=== PATIENT | female | born 1975 | race Two or more races ===

== ENCOUNTER 2022-03-02 10:18 | Inpatient (IN) | payer MEDICAID ==
[~2022-03-02] VITALS: Ht 157.5 cm; Wt 79.1 kg
[2022-03-02 11:07] LABS: Basophils # (auto) 0.2 10 ^3/uL (0-0.2); Eosinophils # (auto) 0.6 10 ^3/uL (0-0.8); Monocytes # (auto) 0.4 10 ^3/uL (0-1.3)
[2022-03-02 11:11] LABS: Basophils % (auto) 1.3 % (0.0-2.0); Eosinophils % (auto) 4.3 % (0.0-7.0); Hematocrit 39.3 % (36.0-46.0); Hemoglobin 12.5 g/dL (12.2-16.2); Lymphocytes # (auto) 2.3 10 ^3/uL (0.4-5.4); Lymphocytes % (auto) 16.3 % (10.0-50.0); Mean Corpuscular Hemoglobin 26.5 pg (28.0-32.0); Mean Corpuscular Hgb Conc. 31.9 g/dL (32.0-36.0); Mean Corpuscular Volume 83.1 fL (80.0-100.0); Monocytes % (auto) 2.7 % (0.0-12.0); Neutrophils # (auto) 10.5 10 ^3/uL (1.6-8.6); Neutrophils % (auto) 75.4 % (37.0-80.0); Red Blood Cells 4.73 10^6/uL (4.0-5.20); Red Cell Distribution Width 14.3 % (11.8-14.3); White Blood Cell 13.9 10^3/uL (4.4-10.8)
[2022-03-02 11:55] LABS: Albumin 3.5 g/dL (3.4-5.0); Potassium 4.1 mmol/L (3.5-5.1)
[2022-03-02 11:59] LABS: BUN/Creatinine Ratio 16.2; Bilirubin, Total 0.4 mg/dL (0.2-1.0); Total Protein 8.2 g/dL (6.4-8.2)
[2022-03-02] MEDS ORDERED: CLINDAMYCIN 600MG IV 50 ML IV ONE (13:00)
[2022-03-02] MEDS ORDERED: PANTOPRAZOLE 40 MG/10 ML VIAL INJ IV ONE (16:45)
[2022-03-02] MEDS ORDERED: SODIUM CHLORIDE 0.9% 1,000 ML IV SCH (16:45)
[2022-03-02] MEDS ORDERED: ONDANSETRON HCL 4 MG/2 ML VIAL IV PRN (16:45)
[2022-03-02] MEDS ORDERED: HYDROcodone-ACET 5/325MG TAB PO PRN (16:45)
[2022-03-02] MEDS: SODIUM CHLORIDE 0.9% 1,000 ML IV SCH (17:00)
[2022-03-02] MEDS ORDERED: VANCOMYCIN 1GM/250ML 250 ML IV ONE (17:00)
[2022-03-02 17:30] LABS: Cholesterol 147 mg/dL (< 200); HDL Cholesterol 48 mg/dL (40-59); LDL Cholesterol 92 mg/dL (< 100); Triglycerides 99 mg/dL (< 150)
[2022-03-03] MEDS: SODIUM CHLORIDE 0.9% 1,000 ML IV SCH ×3 (03:04→23:09)
[2022-03-03] MEDS: hydrALAZINE HCL 20 MG/ML VL IV PRN (03:08)
[2022-03-03] MEDS: ACETAMINOPHEN 325 MG TAB PO PRN (03:22)
[2022-03-03 06:04] LABS: Basophils # (auto) 0 10 ^3/uL (0-0.2); Basophils % (auto) 0.3 % (0.0-2.0); Eosinophils # (auto) 0.3 10 ^3/uL (0-0.8); Lymphocytes # (auto) 1.7 10 ^3/uL (0.4-5.4); Mean Corpuscular Volume 82.6 fL (80.0-100.0); Monocytes # (auto) 0.3 10 ^3/uL (0-1.3)
[2022-03-03 06:07] LABS: Eosinophils % (auto) 2.4 % (0.0-7.0); Hematocrit 36.2 % (36.0-46.0); Hemoglobin 11.6 g/dL (12.2-16.2); Lymphocytes % (auto) 13.1 % (10.0-50.0); Mean Corpuscular Hemoglobin 26.5 pg (28.0-32.0); Mean Corpuscular Hgb Conc. 32.1 g/dL (32.0-36.0); Monocytes % (auto) 2.4 % (0.0-12.0); Neutrophils # (auto) 10.7 10 ^3/uL (1.6-8.6); Neutrophils % (auto) 81.8 % (37.0-80.0); Red Blood Cells 4.39 10^6/uL (4.0-5.20); Red Cell Distribution Width 14.6 % (11.8-14.3); White Blood Cell 13.1 10^3/uL (4.4-10.8)
[2022-03-03 06:15] LABS: Albumin 2.8 g/dL (3.4-5.0); Calcium 8.1 mg/dL (8.5-10.1); Potassium 3.6 mmol/L (3.5-5.1)
[2022-03-03 06:17] LABS: BUN/Creatinine Ratio 11.5
[2022-03-03 06:20] LABS: Bilirubin, Total 0.4 mg/dL (0.2-1.0)
[2022-03-03] MEDS ORDERED: amLODIPine BESYLATE 5 MG TAB PO ONE (09:15)
[2022-03-03] MEDS ORDERED: VANCOMYCIN PER PHARMACY 0 MG IV SCH (09:15)
[2022-03-03] MEDS ORDERED: VANCOMYCIN 1GM/250ML 250 ML IV ONE (09:45)
[2022-03-03] MEDS: PANTOPRAZOLE 40 MG/10 ML VIAL INJ IV SCH (10:12)
[2022-03-03] MEDS: ENOXAPARIN SOD 40 MG/0.4 ML SYRINGE SC SCH (10:17)
[2022-03-03] MEDS: CLINDAMYCIN 600MG IV 50 ML IV SCH ×2 (15:09→23:09)
[2022-03-03 16:00] VITALS: BP 146/75
[2022-03-03 22:00] VITALS: BP 155/66
[2022-03-03] MEDS: VANCOMYCIN 1GM/250ML 250 ML IV SCH (23:08)
[2022-03-04] MEDS: ACETAMINOPHEN 325 MG TAB PO PRN ×3 (00:52→22:02)
[2022-03-04 05:00] VITALS: BP 145/71
[2022-03-04 05:22] LABS: Basophils # (auto) 0 10 ^3/uL (0-0.2); Basophils % (auto) 0.4 % (0.0-2.0); Eosinophils # (auto) 0.3 10 ^3/uL (0-0.8); Eosinophils % (auto) 2.8 % (0.0-7.0); Hematocrit 34.6 % (36.0-46.0); Hemoglobin 11.2 g/dL (12.2-16.2); Lymphocytes # (auto) 1.8 10 ^3/uL (0.4-5.4); Lymphocytes % (auto) 16.2 % (10.0-50.0); Mean Corpuscular Hemoglobin 27.3 pg (28.0-32.0); Mean Corpuscular Hgb Conc. 32.5 g/dL (32.0-36.0); Monocytes # (auto) 0.4 10 ^3/uL (0-1.3); Monocytes % (auto) 3.7 % (0.0-12.0); Neutrophils # (auto) 8.6 10 ^3/uL (1.6-8.6); Neutrophils % (auto) 76.9 % (37.0-80.0); Red Blood Cells 4.12 10^6/uL (4.0-5.20); Red Cell Distribution Width 14.5 % (11.8-14.3); White Blood Cell 11.2 10^3/uL (4.4-10.8)
[2022-03-04 05:39] LABS: Albumin 2.8 g/dL (3.4-5.0)
[2022-03-04 05:41] LABS: BUN/Creatinine Ratio 11.9
[2022-03-04 05:44] LABS: Bilirubin, Total 0.3 mg/dL (0.2-1.0); Total Protein 6.9 g/dL (6.4-8.2)
[2022-03-04] MEDS: CLINDAMYCIN 600MG IV 50 ML IV SCH ×3 (06:21→22:02)
[2022-03-04] MEDS: SODIUM CHLORIDE 0.9% 1,000 ML IV SCH ×2 (09:10→18:27)
[2022-03-04] MEDS: VANCOMYCIN 1GM/250ML 250 ML IV SCH ×2 (09:27→22:01)
[2022-03-04] MEDS: PANTOPRAZOLE 40 MG/10 ML VIAL INJ IV SCH (09:27)
[2022-03-04] MEDS: ENOXAPARIN SOD 40 MG/0.4 ML SYRINGE SC SCH (09:28)
[2022-03-04] MEDS: amLODIPine BESYLATE 5 MG TAB PO SCH (09:28)
[2022-03-04] MEDS: hydrALAZINE HCL 20 MG/ML VL IV PRN (09:29)
[2022-03-04 13:00] VITALS: BP 137/68
[2022-03-04 17:00] VITALS: BP 122/61
[2022-03-04 21:52] VITALS: BP 148/78
[2022-03-05] MEDS: SODIUM CHLORIDE 0.9% 1,000 ML IV SCH ×3 (04:45→23:16)
[2022-03-05 04:59] VITALS: BP 120/80
[2022-03-05 05:41] LABS: Basophils # (auto) 0 10 ^3/uL (0-0.2); Basophils % (auto) 0.5 % (0.0-2.0); Eosinophils # (auto) 0.2 10 ^3/uL (0-0.8); Eosinophils % (auto) 2.6 % (0.0-7.0); Hematocrit 35.6 % (36.0-46.0); Hemoglobin 11.5 g/dL (12.2-16.2); Lymphocytes # (auto) 1.6 10 ^3/uL (0.4-5.4); Lymphocytes % (auto) 26.5 % (10.0-50.0); Mean Corpuscular Hemoglobin 26.4 pg (28.0-32.0); Mean Corpuscular Hgb Conc. 32.2 g/dL (32.0-36.0); Mean Corpuscular Volume 81.9 fL (80.0-100.0); Monocytes # (auto) 0.3 10 ^3/uL (0-1.3); Monocytes % (auto) 5.6 % (0.0-12.0); Neutrophils # (auto) 3.8 10 ^3/uL (1.6-8.6); Neutrophils % (auto) 64.8 % (37.0-80.0); Nucleated Red Blood Cells % 0.2 %; Red Blood Cells 4.35 10^6/uL (4.0-5.20); Red Cell Distribution Width 14.4 % (11.8-14.3); White Blood Cell 5.9 10^3/uL (4.4-10.8)
[2022-03-05 06:05] LABS: Albumin 2.7 g/dL (3.4-5.0); Calcium 8.1 mg/dL (8.5-10.1); Potassium 3.5 mmol/L (3.5-5.1)
[2022-03-05 06:07] LABS: BUN/Creatinine Ratio 11.1
[2022-03-05 06:10] LABS: Bilirubin, Total 0.2 mg/dL (0.2-1.0); Total Protein 7.6 g/dL (6.4-8.2)
[2022-03-05] MEDS: CLINDAMYCIN 600MG IV 50 ML IV SCH ×3 (07:01→23:16)
[2022-03-05 08:53] VITALS: BP 153/92
[2022-03-05] MEDS: PANTOPRAZOLE 40 MG/10 ML VIAL INJ IV SCH (10:29)
[2022-03-05] MEDS: VANCOMYCIN 1GM/250ML 250 ML IV SCH (10:29)
[2022-03-05] MEDS: amLODIPine BESYLATE 5 MG TAB PO SCH (10:31)
[2022-03-05] MEDS: ENOXAPARIN SOD 40 MG/0.4 ML SYRINGE SC SCH (10:31)
[2022-03-05 14:31] VITALS: BP 158/100
[2022-03-05 17:00] VITALS: BP 152/84
[2022-03-05] MEDS: hydrALAZINE HCL 20 MG/ML VL IV PRN (18:36)
[2022-03-05] MEDS: PENICILLIN G POTASSIUM 4,000,000 UNITS in D5W 5% 50 ML IV SCH ×2 (18:37→23:16)
[2022-03-05] MEDS: ACETAMINOPHEN 325 MG TAB PO PRN (20:25)
[2022-03-05 22:00] VITALS: BP 114/65
[2022-03-06] MEDS: PENICILLIN G POTASSIUM 4,000,000 UNITS in D5W 5% 50 ML IV SCH ×6 (03:54→21:57)
[2022-03-06 05:00] VITALS: BP 117/60
[2022-03-06] MEDS: CLINDAMYCIN 600MG IV 50 ML IV SCH ×3 (06:27→22:23)
[2022-03-06 06:32] LABS: Basophils # (auto) 0 10 ^3/uL (0-0.2); Basophils % (auto) 0.8 % (0.0-2.0); Eosinophils # (auto) 0.2 10 ^3/uL (0-0.8); Hematocrit 36.4 % (36.0-46.0); Hemoglobin 11.8 g/dL (12.2-16.2); Lymphocytes # (auto) 1.7 10 ^3/uL (0.4-5.4); Lymphocytes % (auto) 29.3 % (10.0-50.0); Mean Corpuscular Hemoglobin 26.5 pg (28.0-32.0); Mean Corpuscular Hgb Conc. 32.3 g/dL (32.0-36.0); Mean Corpuscular Volume 82.2 fL (80.0-100.0); Monocytes # (auto) 0.4 10 ^3/uL (0-1.3); Monocytes % (auto) 7.5 % (0.0-12.0); Neutrophils # (auto) 3.3 10 ^3/uL (1.6-8.6); Neutrophils % (auto) 58.4 % (37.0-80.0); Red Blood Cells 4.43 10^6/uL (4.0-5.20); Red Cell Distribution Width 14.4 % (11.8-14.3); White Blood Cell 5.7 10^3/uL (4.4-10.8)
[2022-03-06 06:47] LABS: Albumin 2.8 g/dL (3.4-5.0); BUN/Creatinine Ratio 18.8; Calcium 8.4 mg/dL (8.5-10.1); Potassium 4.4 mmol/L (3.5-5.1)
[2022-03-06 06:50] LABS: Bilirubin, Total 0.2 mg/dL (0.2-1.0); Total Protein 6.9 g/dL (6.4-8.2)
[2022-03-06] MEDS: ENOXAPARIN SOD 40 MG/0.4 ML SYRINGE SC SCH (08:52)
[2022-03-06] MEDS: PANTOPRAZOLE 40 MG/10 ML VIAL INJ IV SCH (08:52)
[2022-03-06] MEDS: amLODIPine BESYLATE 5 MG TAB PO SCH (08:53)
[2022-03-06 09:00] VITALS: BP 144/53
[2022-03-06] MEDS: SODIUM CHLORIDE 0.9% 1,000 ML IV SCH ×2 (10:14→20:45)
[2022-03-06 12:45] VITALS: BP 137/67
[2022-03-06 17:00] VITALS: BP 156/78
[2022-03-06] MEDS ORDERED: AMOX500T86 PO (19:56)
[2022-03-06] MEDS ORDERED: AMOX-277 PO (19:57)
[2022-03-06 21:40] VITALS: BP 140/62
[2022-03-07] MEDS: PENICILLIN G POTASSIUM 4,000,000 UNITS in D5W 5% 50 ML IV SCH ×6 (02:13→22:18)
[2022-03-07 05:00] VITALS: BP 126/67
[2022-03-07] MEDS: CLINDAMYCIN 600MG IV 50 ML IV SCH (06:01)
[2022-03-07 06:15] LABS: Albumin 2.9 g/dL (3.4-5.0); BUN/Creatinine Ratio 17.1; Calcium 8.3 mg/dL (8.5-10.1); Potassium 4.7 mmol/L (3.5-5.1)
[2022-03-07 06:18] LABS: Bilirubin, Total 0.2 mg/dL (0.2-1.0); Total Protein 7.6 g/dL (6.4-8.2)
[2022-03-07 06:33] LABS: Basophils # (auto) 0.1 10 ^3/uL (0-0.2); Eosinophils # (auto) 0.3 10 ^3/uL (0-0.8); Eosinophils % (auto) 5.5 % (0.0-7.0); Hemoglobin 12.4 g/dL (12.2-16.2); Lymphocytes # (auto) 2.1 10 ^3/uL (0.4-5.4); Lymphocytes % (auto) 33.2 % (10.0-50.0); Mean Corpuscular Hgb Conc. 32.7 g/dL (32.0-36.0); Mean Corpuscular Volume 82.5 fL (80.0-100.0); Monocytes # (auto) 0.4 10 ^3/uL (0-1.3); Monocytes % (auto) 6.4 % (0.0-12.0); Neutrophils # (auto) 3.4 10 ^3/uL (1.6-8.6); Neutrophils % (auto) 53.9 % (37.0-80.0); Nucleated Red Blood Cells % 0.1 %; Red Blood Cells 4.61 10^6/uL (4.0-5.20); Red Cell Distribution Width 14.4 % (11.8-14.3); White Blood Cell 6.3 10^3/uL (4.4-10.8)
[2022-03-07] MEDS: SODIUM CHLORIDE 0.9% 1,000 ML IV SCH (06:41)
[2022-03-07 09:00] VITALS: BP 145/77
[2022-03-07] MEDS: ENOXAPARIN SOD 40 MG/0.4 ML SYRINGE SC SCH (09:18)
[2022-03-07] MEDS: PANTOPRAZOLE 40 MG/10 ML VIAL INJ IV SCH (09:18)
[2022-03-07] MEDS: amLODIPine BESYLATE 5 MG TAB PO SCH (09:20)
[2022-03-07] MEDS: hydrALAZINE HCL 20 MG/ML VL IV PRN (11:55)
[2022-03-07 12:00] VITALS: BP 166/89
[2022-03-07 17:00] VITALS: BP 113/56
[2022-03-07 21:41] VITALS: BP 157/79
[2022-03-08] MEDS: PENICILLIN G POTASSIUM 4,000,000 UNITS in D5W 5% 50 ML IV SCH ×4 (02:07→09:42)
[2022-03-08 04:00] VITALS: BP 132/71
[2022-03-08 06:56] LABS: Albumin 2.9 g/dL (3.4-5.0); Calcium 8.6 mg/dL (8.5-10.1); Potassium 4.5 mmol/L (3.5-5.1)
[2022-03-08 07:00] LABS: BUN/Creatinine Ratio 22.6; Bilirubin, Total 0.2 mg/dL (0.2-1.0); Eosinophils # (auto) 0.4 10 ^3/uL (0-0.8); Hemoglobin 12.1 g/dL (12.2-16.2); Lymphocytes # (auto) 2.5 10 ^3/uL (0.4-5.4); Monocytes # (auto) 0.4 10 ^3/uL (0-1.3); Red Blood Cells 4.49 10^6/uL (4.0-5.20); Total Protein 7.1 g/dL (6.4-8.2)
[2022-03-08 07:04] LABS: Basophils # (auto) 0 10 ^3/uL (0-0.2); Basophils % (auto) 0.6 % (0.0-2.0); Eosinophils % (auto) 5.2 % (0.0-7.0); Lymphocytes % (auto) 35.3 % (10.0-50.0); Mean Corpuscular Hgb Conc. 32.7 g/dL (32.0-36.0); Mean Corpuscular Volume 82.5 fL (80.0-100.0); Monocytes % (auto) 5.9 % (0.0-12.0); Neutrophils # (auto) 3.8 10 ^3/uL (1.6-8.6); Nucleated Red Blood Cells % 0.1 %; Red Cell Distribution Width 14.5 % (11.8-14.3); White Blood Cell 7.1 10^3/uL (4.4-10.8)
[2022-03-08 08:00] VITALS: BP 158/85
[2022-03-08] MEDS: amLODIPine BESYLATE 5 MG TAB PO SCH (09:40)
[2022-03-08] MEDS ORDERED: AML5T PO (10:46)
[2022-03-08] MEDS ORDERED: CEPH-510 PO (10:46)
[2022-03-08 11:33] VITALS: BP 158/85
[2022-03-08 12:00] VITALS: BP 152/78
== END 2022-03-08 14:23 | disposition home or self-care (01) | DRG 720 ==
LOC: ER 10:18 → OVERFLOW 16:31 → EAST 03-03 13:26
PROVIDERS: ADMIT Nurse Practitioner Family; ATTEND Internal Medicine
DX: A41.9 Sepsis, unspecified organism (principal); E44.0 Moderate protein-calorie malnutrition; L97.529 Non-pressure chronic ulcer of other part of left foot with unspecified severity; L03.116 Cellulitis of left lower limb; I10 Essential (primary) hypertension; L03.113 Cellulitis of right upper limb; E66.9 Obesity, unspecified; I16.0 Hypertensive urgency; M20.10 Hallux valgus (acquired), unspecified foot; Z20.822 Contact with and (suspected) exposure to COVID-19; W57.XXXA Bitten or stung by nonvenomous insect and other nonvenomous arthropods, initial encounter; Z68.32 Body mass index [BMI] 32.0-32.9, adult; Z79.899 Other long term (current) drug therapy; Z90.49 Acquired absence of other specified parts of digestive tract; Z59.00 Homelessness unspecified
CPT/HCPCS: 36415; 73140; 73700; 80053; 80061; 80202; 82962; 83036; 83605; 85025; 85652; 87040; 87077; 87186; 87205; 87426; 96365; 96375; C9113; G0378; J3490; J7060

== ENCOUNTER 2022-04-23 16:03 | Inpatient (IN) | payer MEDICAID ==
[~2022-04-23] VITALS: Ht 157.5 cm; Wt 69.0 kg
[~2022-04-23 16:03] MED LIST: AML5T PO; AMOX-277 PO; CEPH-510 PO
[2022-04-23] MEDS ORDERED: HYDROcodone-ACET 10/325MG TAB PO ONE (16:15)
[2022-04-23 16:17] VITALS: BP 126/87
[2022-04-23 17:02] LABS: Eosinophils # (auto) 0.2 10 ^3/uL (0-0.8); Mean Corpuscular Hemoglobin 26.8 pg (28.0-32.0); Monocytes # (auto) 0.5 10 ^3/uL (0-1.3); Red Cell Distribution Width 15.1 % (11.8-14.3)
[2022-04-23 17:05] LABS: Basophils # (auto) 0.2 10 ^3/uL (0-0.2); Basophils % (auto) 0.9 % (0.0-2.0); Hematocrit 37.3 % (36.0-46.0); Lymphocytes # (auto) 1.6 10 ^3/uL (0.4-5.4); Lymphocytes % (auto) 7.9 % (10.0-50.0); Mean Corpuscular Hgb Conc. 32.3 g/dL (32.0-36.0); Monocytes % (auto) 2.7 % (0.0-12.0); Neutrophils # (auto) 17.4 10 ^3/uL (1.6-8.6); Neutrophils % (auto) 87.5 % (37.0-80.0); Nucleated Red Blood Cells % 0.2 %; Red Blood Cells 4.49 10^6/uL (4.0-5.20); White Blood Cell 19.9 10^3/uL (4.4-10.8)
[2022-04-23 17:17] LABS: Albumin 3.5 g/dL (3.4-5.0); Calcium 9.3 mg/dL (8.5-10.1); Magnesium 2.3 mg/dL (1.6-2.6); Potassium 3.9 mmol/L (3.5-5.1)
[2022-04-23 17:19] LABS: BUN/Creatinine Ratio 17.3
[2022-04-23 17:22] LABS: Bilirubin, Total 0.4 mg/dL (0.2-1.0); Total Protein 8.6 g/dL (6.4-8.2)
[2022-04-23] MEDS ORDERED: DOCUSATE SOD 100 MG CAP PO PRN (21:00)
[2022-04-23] MEDS ORDERED: CLINDAMYCIN 600MG IV 50 ML IV ONE (21:00)
[2022-04-23] MEDS ORDERED: MORPHINE SULFATE INJ 2 MG/ml SYRG IV PRN ×2 (21:00→22:00)
[2022-04-23] MEDS ORDERED: ONDANSETRON HCL 4 MG/2 ML VIAL IV PRN (21:00)
[2022-04-23] MEDS ORDERED: TEMAZEPAM 15 MG CAP PO PRN (21:00)
[2022-04-23] MEDS ORDERED: ACETAMINOPHEN 325 MG TAB PO PRN (21:00)
[2022-04-23] MEDS ORDERED: HYDROcodone-ACET 5/325MG TAB PO PRN (21:00)
[2022-04-23] MEDS ORDERED: ASCORBIC ACID 500 MG TAB PO SCH (22:00)
[2022-04-23] MEDS ORDERED: SODIUM CHLOR 0.9% PF (SALINE LOCK) 10ML VIAL/SYR IV SCH (22:00)
[2022-04-23] MEDS ORDERED: NITROGLYCERIN 0.4 MG SL TAB SL PRN (22:00)
[2022-04-24 05:46] LABS: Basophils # (auto) 0 10 ^3/uL (0-0.2); Basophils % (auto) 0.4 % (0.0-2.0); Eosinophils # (auto) 0.5 10 ^3/uL (0-0.8); Hemoglobin 11.9 g/dL (12.2-16.2); Lymphocytes # (auto) 1.6 10 ^3/uL (0.4-5.4)
[2022-04-24 05:48] LABS: Eosinophils % (auto) 4.5 % (0.0-7.0); Hematocrit 36.8 % (36.0-46.0); Lymphocytes % (auto) 13.6 % (10.0-50.0); Mean Corpuscular Hemoglobin 26.9 pg (28.0-32.0); Mean Corpuscular Hgb Conc. 32.4 g/dL (32.0-36.0); Monocytes # (auto) 0.5 10 ^3/uL (0-1.3); Monocytes % (auto) 4.4 % (0.0-12.0); Neutrophils # (auto) 8.9 10 ^3/uL (1.6-8.6); Neutrophils % (auto) 77.1 % (37.0-80.0); Red Blood Cells 4.43 10^6/uL (4.0-5.20); Red Cell Distribution Width 15.2 % (11.8-14.3); White Blood Cell 11.6 10^3/uL (4.4-10.8)
[2022-04-24] MEDS ORDERED: CLINDAMYCIN 600MG IV 50 ML IV SCH (06:00)
[2022-04-24 06:07] LABS: Potassium 4.3 mmol/L (3.5-5.1)
[2022-04-24 06:14] LABS: Albumin 3.4 g/dL (3.4-5.0); BUN/Creatinine Ratio 18.3; Bilirubin, Total 0.5 mg/dL (0.2-1.0); Calcium 9.1 mg/dL (8.5-10.1); Total Protein 7.9 g/dL (6.4-8.2)
[2022-04-24] MEDS ORDERED: ZINC SULFATE 220mg CAP or TAB PO SCH (10:00)
[2022-04-24] MEDS ORDERED: ENOXAPARIN SOD 40 MG/0.4 ML SYRINGE SC SCH (10:00)
== END 2022-04-24 11:58 | disposition left against medical advice (07) | DRG 383 ==
LOC: ER 16:05 → OVERFLOW 21:57
PROVIDERS: ADMIT Nurse Practitioner Family; ATTEND Nurse Practitioner Family
DX: L03.116 Cellulitis of left lower limb (principal); Z53.29 Procedure and treatment not carried out because of patient's decision for other reasons; Z90.49 Acquired absence of other specified parts of digestive tract
CPT/HCPCS: 36415; 73630; 80053; 83605; 83735; 83880; 85025; 87040; 96372; G0378